=== PATIENT | male | born 1985 | race Two or more races ===

== ENCOUNTER 2018-04-12 14:43 | Emergency (ER) | payer SELFPAY ==
[~2018-04-12] VITALS: Ht 170.2 cm; Wt 64.0 kg
[2018-04-12 16:04] LABS: *COCAINE SCREEN URINE NEGATIVE (NEGATIVE)
[2018-04-12 16:05] LABS: CANNABINOID URINE SCREEN PRESUMTIVE POSITIVE (NEGATIVE); METHADONE URINE SCREEN NEGATIVE (NEGATIVE); OPIATES URINE SCREEN NEGATIVE (NEGATIVE); PHENCYCLIDINE URINE SCREEN NEGATIVE (NEGATIVE)
[2018-04-12 16:06] LABS: *AMPHETAMINES SCREEN URINE NEGATIVE (NEGATIVE); *BARBITURATES SCREEN URINE NEGATIVE (NEGATIVE); *BENZODIAZEPINES SCREEN URINE NEGATIVE (NEGATIVE)
[2018-04-12] MEDS ORDERED: TETANUS, DIPHTHERIA, PERTUSSIS VAC/PF 0.5ML (>7YR OLD) IM ONE (18:45)
[2018-04-12 19:35] VITALS: BP 110/71
== END 2018-04-12 19:54 | disposition home or self-care (01) ==
LOC: ER 14:43
DX: S00.81XA Abrasion of other part of head, initial encounter (principal); M25.562 Pain in left knee; M25.521 Pain in right elbow; F15.10 Other stimulant abuse, uncomplicated; Y08.89XA Assault by other specified means, initial encounter; Y93.89 Activity, other specified; Y92.89 Other specified places as the place of occurrence of the external cause; Y99.8 Other external cause status
CPT/HCPCS: 36415; 71045; 73080; 73562; 80305; 86703; 86803; 87517; 90471; 90715; 99284